=== PATIENT | male | born 1975 | race Two or more races ===

== ENCOUNTER 2018-02-06 23:34 | Emergency (ER) | payer MEDICAID ==
[~2018-02-06] VITALS: Ht 172.7 cm; Wt 78.9 kg
--- NOTE | 2018-02-07 00:50 | NUR ---
Dr. Paulson at bedside for MSE.
[2018-02-07 01:10] LABS: BASOPHILS # (AUTO) 0.1 K/uL (0.0-8.0); BASOPHILS % (AUTO) 0.9 % (0.0-2.0); EOSINOPHILS # (AUTO) 0.3 K/uL (0.0-0.7); HEMATOCRIT 44.3 % (36.7-47.1); HEMOGLOBIN 15.1 g/dL (12.5-16.3); LYMPHOCYTES # (AUTO) 1.9 K/uL (20.0-40.0); LYMPHOCYTES % (AUTO) 25.6 % (20.5-51.5); MEAN CORPUSCULAR HEMOGLOBIN 28.5 uug (23.8-33.4); MEAN CORPUSCULAR HGB CONC 34 g/dL (32.5-36.3); MONOCYTES # (AUTO) 0.7 K/uL (2.0-10.0); MONOCYTES % (AUTO) 9.2 % (0.0-11.0); NEUTROPHILS # (AUTO) 4.4 K/uL (1.8-8.9); NEUTROPHILS % (AUTO) 60.3 % (38.5-71.5); PLATELET COUNT (AUTO) 206 K/uL (152-348); RED BLOOD CELL COUNT(AUTO) 5.27 MIL/uL (4.06-5.63); WHITE BLOOD COUNT (AUTO) 7.4 K/uL (3.6-10.2)
[2018-02-07 01:21] LABS: POTASSIUM 4.1 mmol/L (3.5-5.1)
[2018-02-07 01:34] LABS: BILIRUBIN,DIRECT 0.1 mg/dL (0.0-0.2); BILIRUBIN,TOTAL 0.4 mg/dL (0.2-1.0)
--- NOTE | 2018-02-07 03:22 | NUR ---
Patient discharged to home in stable conditon. Written and verbal after care instructions given. Patient verbalizes understanding of instructions. Patient ambulated out of ER with steady gait, no acute signs of distress, VSS, all belongings taken. Patient's brother Greg left phone number to contact them for Xray results.
--- NOTE | 2018-02-07 03:24 | NUR ---
Note dale in EDM - 02/07/18 at 0326 by LINDY Patient discharged to home in stable conditon. Written and verbal after care instructions given. Patient verbalizes understanding of instructions. Patient ambulated out of ER with steady gait, no acute signs of distress, VSS, all belongings taken.
[2018-02-07 03:27] VITALS: BP 126/88
== END 2018-02-07 03:28 | disposition home or self-care (01) ==
LOC: ER 23:34
DX: L40.9 Psoriasis, unspecified (principal)
CPT/HCPCS: 36415; 70030-TC; 71045; 85025; 85730; 93005; A4663